=== PATIENT | female | born 1985 | race Hispanic/Latino ===

== ENCOUNTER 2017-12-30 22:04 | Emergency (ER) | payer OTHER ==
[2017-12-30 22:39] LABS: APPEARANCE,URINE CLEAR (CLEAR); BILIRUBIN,URINE SMALL (NEGATIVE); COLOR,URINE YELLOW (YELLOW); GLUCOSE, URINE (UA) NEGATIVE (NEGATIVE); KETONES,URINE NEGATIVE (NEGATIVE); LEUKOCYTE ESTERASE ,URINE NEGATIVE (NEGATIVE); NITRATE,URINE NEGATIVE (NEGATIVE); OCCULT BLOOD,URINE NEGATIVE (NEGATIVE); PH,URINE 5.5 (5.0-8.0); PROTEIN,URINE TRACE (NEGATIVE)
[2017-12-30 22:52] LABS: CREATININE 0.8 mg/dL (0.5-1.5); POTASSIUM 3.6 mmol/L (3.5-5.1)
[2017-12-30 22:54] LABS: BACTERIA,URINE Few /HPF (None Seen); RBC,URINE 0-1 /HPF (0-1); WBC,URINE 0-1 /HPF (0-1)
[2017-12-30 22:55] LABS: CALCIUM OXALATE CRYSTALS,UR Few /LPF (None Seen); MUCUS,URINE Few LPF (None Seen)
[2017-12-30 22:56] LABS: ALBUMIN 3.8 g/dL (3.5-5.0); BILIRUBIN,TOTAL 0.3 mg/dL (0.2-1.0); TOTAL PROTEIN, SERUM 7.5 g/dL (6.0-8.3)
[2017-12-30 23:17] LABS: BASOPHILS % (AUTO) 0.3 % (0.0-5.0); EOSINOPHILS % (AUTO) 1.2 % (0.0-8.0); HEMATOCRIT 32.2 % (36-48); LYMPHOCYTES % (AUTO) 34.1 % (21.0-51.0); MEAN CORPUSCULAR HEMOGLOBIN 25.5 pg (27.0-33.0); MEAN CORPUSCULAR HGB CONC 32.9 g/dL (32.0-36.0); MEAN CORPUSCULAR VOLUME 77.5 fL (79-99); NEUTROPHILS % (AUTO) 53.4 % (40.0-77.0); PLATELET COUNT (AUTO) 330 K/uL (130-400); RED BLOOD CELL COUNT(AUTO) 4.15 MIL/uL (4.00-5.50); RED CELL DISTRIBUTION WIDTH 17.6 % (11.0-15.5); WHITE BLOOD COUNT (AUTO) 5.2 K/uL (4.8-10.8)
[2017-12-30] MEDS ORDERED: NITROFURANTOIN MONOHYD/M-CRYST 100 MG CAPSULE PO ONE (23:50)
[2017-12-30] MEDS ORDERED: KETOROLAC TROMETHAMINE 30MG/ML ONE (23:50)
[2017-12-30] MEDS ORDERED: PHENAZOPYRIDINE HCL 200 MG TABLET ONE (23:51)
== END 2017-12-31 00:17 | disposition home or self-care (01) ==
LOC: EDH 22:04
DX: N30.00 Acute cystitis without hematuria (principal); Z98.890 Other specified postprocedural states
CPT/HCPCS: 36415; 80053; 81001; 81025; 83690; 85025; 87210; 87486; 87797; 96372; 99284; J1885

== ENCOUNTER 2018-01-13 11:58 | Emergency (ER) | payer OTHER ==
[2018-01-13 12:47] LABS: APPEARANCE,URINE Clear (CLEAR); BILIRUBIN,URINE Negative (NEGATIVE); COLOR,URINE Yellow (YELLOW); GLUCOSE, URINE (UA) Negative (NEGATIVE); KETONES,URINE Negative (NEGATIVE); LEUKOCYTE ESTERASE ,URINE Large (NEGATIVE); NITRATE,URINE Negative (NEGATIVE); OCCULT BLOOD,URINE Negative (NEGATIVE); PROTEIN,URINE Negative (NEGATIVE); UROBILINOGEN,URINE 0.2 mg/dL (0.2-1.0)
[2018-01-13 12:49] LABS: HCG,QUAL RESULT NEGATIVE (NEGATIVE)
[2018-01-13 12:59] LABS: RBC,URINE None Seen /HPF (0-1)
[2018-01-13 13:01] LABS: SQUAMOUS EPITHELIAL CELL,UR Few /HPF (0-2)
[2018-01-13 13:03] LABS: BACTERIA,URINE Rare /HPF (None Seen)
[2018-01-13] MEDS ORDERED: LIDOCAINE HCL-MPF 1% 2ML VIAL ONE (14:23)
[2018-01-13] MEDS ORDERED: CEFTRIAXONE SODIUM 1 GM ONE (14:23)
[2018-01-13] MEDS ORDERED: AZITHROMYCIN 250 MG TABLET PO ONE (14:24)
== END 2018-01-13 14:44 | disposition home or self-care (01) ==
LOC: EDH 11:58
DX: N30.00 Acute cystitis without hematuria (principal); B37.89 Other sites of candidiasis; Z98.890 Other specified postprocedural states
CPT/HCPCS: 81001; 81025; 87486; 87797; 96372; 99284; J0696; J3490

== ENCOUNTER 2018-04-03 14:58 | Emergency (ER) | payer MEDICAID ==
[2018-04-03] MEDS ORDERED: OCTYL 2-CYANOACRYLATE 1 EACH TP ONE (15:37)
== END 2018-04-03 16:04 | disposition home or self-care (01) ==
LOC: EDH 14:58
DX: S61.210A Laceration without foreign body of right index finger without damage to nail, initial encounter (principal); W26.8XXA Contact with other sharp object(s), not elsewhere classified, initial encounter; Y93.89 Activity, other specified; Y92.098 Other place in other non-institutional residence as the place of occurrence of the external cause; Y99.8 Other external cause status
CPT/HCPCS: 12001; 73130

== ENCOUNTER 2018-04-18 08:32 | Emergency (ER) | payer MEDICAID ==
[2018-04-18 09:02] LABS: APPEARANCE,URINE TURBID (CLEAR); BILIRUBIN,URINE NEGATIVE (NEGATIVE); COLOR,URINE RED (YELLOW); GLUCOSE, URINE (UA) NEGATIVE (NEGATIVE); KETONES,URINE 5 mg/dL (NEGATIVE); LEUKOCYTE ESTERASE ,URINE TRACE (NEGATIVE); NITRATE,URINE POSITIVE (NEGATIVE); OCCULT BLOOD,URINE LARGE (NEGATIVE); PROTEIN,URINE 100 (NEGATIVE)
[2018-04-18 09:12] LABS: HCG,QUAL RESULT NEGATIVE (NEGATIVE)
[2018-04-18 09:18] LABS: RBC,URINE TNTC /HPF (0-1)
[2018-04-18 09:19] LABS: BACTERIA,URINE Rare /HPF (None Seen); SPERM,URINE Rare /HPF (None Seen); SQUAMOUS EPITHELIAL CELL,UR Few /HPF (0-2)
[2018-04-18 09:26] LABS: BASOPHILS % (AUTO) 0.3 % (0.0-5.0); HEMATOCRIT 34.3 % (36-48); MEAN CORPUSCULAR HEMOGLOBIN 24.6 pg (27.0-33.0); MEAN CORPUSCULAR HGB CONC 31.7 g/dL (32.0-36.0); MEAN CORPUSCULAR VOLUME 77.6 fL (79-99); NEUTROPHILS % (AUTO) 68.7 % (40.0-77.0); PLATELET COUNT (AUTO) 287 K/uL (130-400); RED BLOOD CELL COUNT(AUTO) 4.42 MIL/uL (4.00-5.50); RED CELL DISTRIBUTION WIDTH 16.2 % (11.0-15.5); WHITE BLOOD COUNT (AUTO) 5.9 K/uL (4.8-10.8)
[2018-04-18 09:30] LABS: CREATININE 0.7 mg/dL (0.5-1.5); POTASSIUM 3.8 mmol/L (3.5-5.1)
[2018-04-18 09:34] LABS: ALBUMIN 3.6 g/dL (3.5-5.0); BILIRUBIN,TOTAL 0.2 mg/dL (0.2-1.0); TOTAL PROTEIN, SERUM 7.7 g/dL (6.0-8.3)
[2018-04-18] MEDS ORDERED: SODIUM CHLORIDE 0.9% 50 ML IV ONE (10:27)
[2018-04-18] MEDS ORDERED: CEFTRIAXONE SODIUM 1 GM ONE (10:27)
== END 2018-04-18 10:41 | disposition home or self-care (01) ==
LOC: EDH 08:32
DX: J20.9 Acute bronchitis, unspecified (principal)
CPT/HCPCS: 36415; 71046; 80053; 81001; 81025; 82150; 83690; 85025; 87804 ×2; 93005; 96374; 99285; J0696

== ENCOUNTER 2018-07-17 13:47 | Emergency (ER) | payer MEDICAID ==
[2018-07-17 14:47] LABS: BASOPHILS % (AUTO) 1.7 % (0.0-5.0); EOSINOPHILS % (AUTO) 2.3 % (0.0-8.0); HEMATOCRIT 32.7 % (36-48); LYMPHOCYTES % (AUTO) 27.2 % (21.0-51.0); MEAN CORPUSCULAR HEMOGLOBIN 22.3 pg (27.0-33.0); MEAN CORPUSCULAR VOLUME 71.9 fL (79-99); MONOCYTES % (AUTO) 9.7 % (3.0-13.0); NEUTROPHILS % (AUTO) 59.1 % (40.0-77.0); PLATELET COUNT (AUTO) 372 K/uL (130-400); RED BLOOD CELL COUNT(AUTO) 4.55 MIL/uL (4.00-5.50); RED CELL DISTRIBUTION WIDTH 16.4 % (11.0-15.5); WHITE BLOOD COUNT (AUTO) 5.4 K/uL (4.8-10.8)
[2018-07-17 14:57] LABS: APPEARANCE,URINE Clear (CLEAR); BILIRUBIN,URINE Negative (NEGATIVE); COLOR,URINE Yellow (YELLOW); GLUCOSE, URINE (UA) Negative (NEGATIVE); KETONES,URINE Negative (NEGATIVE); LEUKOCYTE ESTERASE ,URINE Small (NEGATIVE); NITRATE,URINE Negative (NEGATIVE); OCCULT BLOOD,URINE Small (NEGATIVE); PROTEIN,URINE Negative (NEGATIVE); UROBILINOGEN,URINE 0.2 mg/dL (0.2-1.0)
[2018-07-17 15:10] LABS: CREATININE 0.6 mg/dL (0.5-1.5); POTASSIUM 3.7 mmol/L (3.5-5.1)
[2018-07-17 15:11] LABS: BACTERIA,URINE Few /HPF (None Seen); RBC,URINE 0-1 /HPF (0-1); SQUAMOUS EPITHELIAL CELL,UR Few /HPF (0-2)
[2018-07-17 15:20] LABS: BILIRUBIN,TOTAL 0.2 mg/dL (0.2-1.0); TOTAL PROTEIN, SERUM 8.2 g/dL (6.0-8.3)
[2018-07-17] MEDS ORDERED: CEFTRIAXONE SODIUM 500 MG VIAL ONE (16:14)
[2018-07-17] MEDS ORDERED: AZITHROMYCIN 250 MG TABLET PO ONE (16:15)
== END 2018-07-17 17:01 | disposition home or self-care (01) ==
LOC: EDH 13:47
DX: N76.0 Acute vaginitis (principal); N93.8 Other specified abnormal uterine and vaginal bleeding; N34.2 Other urethritis
CPT/HCPCS: 36415; 80053; 81001; 83690; 84702; 85025; 86900; 86901; 87210; 87486; 87797; 96372; 99283; J0696

== ENCOUNTER 2018-08-31 08:35 | Emergency (ER) | payer MEDICAID, OTHER ==
[2018-08-31 09:26] LABS: APPEARANCE,URINE Cloudy (CLEAR); BILIRUBIN,URINE Negative (NEGATIVE); COLOR,URINE Yellow (YELLOW); GLUCOSE, URINE (UA) Negative (NEGATIVE); KETONES,URINE Negative (NEGATIVE); LEUKOCYTE ESTERASE ,URINE Large (NEGATIVE); NITRATE,URINE Positive (NEGATIVE); OCCULT BLOOD,URINE Large (NEGATIVE); PH,URINE 6.5 (5.0-8.0); PROTEIN,URINE Negative (NEGATIVE)
[2018-08-31 09:27] LABS: HCG,QUAL RESULT NEGATIVE (NEGATIVE)
[2018-08-31 09:34] LABS: BACTERIA,URINE Many /HPF (None Seen); RBC,URINE 0-1 /HPF (0-1); SQUAMOUS EPITHELIAL CELL,UR Moderate /HPF (0-2); WBC,URINE 51-100 /HPF (0-1)
[2018-08-31] MEDS ORDERED: CEFTRIAXONE SODIUM 1 GM ONE (09:40)
[2018-08-31] MEDS ORDERED: LIDOCAINE HCL 1% 20 ML VIAL ONE (09:40)
== END 2018-08-31 10:27 | disposition home or self-care (01) ==
LOC: EDH 08:35
DX: N30.01 Acute cystitis with hematuria (principal); R50.9 Fever, unspecified; Z98.890 Other specified postprocedural states
CPT/HCPCS: 81001; 81025; 96372; 99283; J0696

== ENCOUNTER 2018-11-18 11:35 | Emergency (ER) | payer OTHER ==
[2018-11-18] MEDS ORDERED: KETOROLAC TROMETHAMINE 60 MG/2 ML VIAL ONE (12:41)
== END 2018-11-18 12:44 | disposition home or self-care (01) ==
LOC: EDH 11:35
DX: N64.4 Mastodynia (principal)
CPT/HCPCS: 81025; 96372; 99283; J1885